=== PATIENT | female | born 1970 | race Caucasian/White ===

== ENCOUNTER 2020-12-02 16:12 | Emergency (ER) | payer BC ==
[~2020-12-02] VITALS: Ht 154.9 cm; Wt 68.0 kg
[2020-12-02] MEDS ORDERED: DICLOFENAC SODI75 MG PO (18:09)
== END 2020-12-02 18:38 | disposition home or self-care (01) ==
LOC: ER 16:12
DX: S60.211A Contusion of right wrist, initial encounter (principal); W17.89XA Other fall from one level to another, initial encounter; Y93.31 Activity, mountain climbing, rock climbing and wall climbing; Y92.821 Forest as the place of occurrence of the external cause; Y99.8 Other external cause status